=== PATIENT | female | born 1990 | race Caucasian/White ===

== ENCOUNTER 2020-09-23 07:59 | Emergency (ER) | payer MEDICAID, OTHER ==
[~2020-09-23] VITALS: Ht 154.9 cm; Wt 69.7 kg
[~2020-09-23 07:59] MED LIST: CLEO300C2 PO; LEVO112T2 PO; PRED20TA PO
[2020-09-23] MEDS ORDERED: ISOVUE-370 76% 100ML VIAL As Ordered ONE (08:50)
--- NOTE | 2020-09-23 10:18 | REP ---
INDICATION: tonsilitis, r/o [employer]. Patient gives a history of thyroid carcinoma treated with radioiodine. Post thyroidectomy. COMPARISON: Comparison CT study of the neck is from October 07, 2018.. TECHNIQUE: Helical scanning is acquired following the intravenous injection of 75 mL of Isovue 370. 3 mm axial images re-formatted. Coronal and sagittal MPR images are provided. FINDINGS: There is an air-fluid level in the right maxillary sinus with mucosal thickening in the right maxillary sinus. Patient is status post bilateral uncinectomy. Partial opacification is seen in the ethmoid air cells bilaterally. The left maxillary sinus is clear. No intraorbital abnormality is appreciated. The visualized intracranial structures are unremarkable. The tonsillar and peritonsillar soft tissues are unremarkable today. There is no evidence of tonsillar or peritonsillar abscess. Submandibular glands are normal and symmetric. Parotid glands are unremarkable. There are scattered normal sized cervical lymph nodes similar to the prior study from 2019. There is a focus of residual or aberrant thyroid tissue to the right of the trachea and posterior to the carotid artery on the right. This measures 1.5 x 1.5 by 2.7 cm. There are hypodense areas within this thyroid tissue consistent with cysts or nodules. This is unchanged from the October 07, 2018 prior study. This is of uncertain significance in a patient who is status post both surgical and radio iodine ablation therapy. There is a nodular area of increased density at or adjacent to the anterior margin of the thyroid cartilage. This measures 10 x 13 x 25 mm. It is not clear whether this represents a localized cartilage lesion or a nother to positive ectopic thyroid tissue.. This also appears unchanged. No bony destructive lesion is seen. Lung apices are clear. IMPRESSION: 1. No evidence of tonsillar or peritonsillar abscess. 2. Status post thyroidectomy and by history, radio iodine ablation therapy for thyroid malignancy. There is residual and/or aberrant thyroid tissue in the right neck, as previously noted unchanged, 1.5 x 1.5 x 2.7 cm. There is another stable radiodense nodule in the anterior midline at the thyroid cartilage also unchanged. Both these foci could be ectopic thyroid tissue. If she has indeed had radio iodine ablation therapy, this tissue should not persist.. There are stable normal-sized lymph nodes bilaterally. Recommend correlation with patient's thyroid malignancy treatment history. 3. Status post bilateral uncinectomy with air and fluid in the right maxillary sinus consistent with right maxillary sinusitis. <Electronically signed by Jean Carlos Castrejon > 09/23/20 1011
[2020-09-23 11:13] VITALS: BP 120/82
--- NOTE | 2020-09-27 11:58 | ED PDOC ---
Post-Departure Follow-Up jenae tafoya and joy faxed formal report of ct neck for fu Jeri Steele MD September 27, 2020 11:58
== END 2020-09-23 11:14 | disposition home or self-care (01) ==
LOC: M ED 07:59
DX: E07.9 Disorder of thyroid, unspecified (principal); J03.90 Acute tonsillitis, unspecified; Z79.890 Hormone replacement therapy; Z88.0 Allergy status to penicillin; Z88.5 Allergy status to narcotic agent; Z91.040 Latex allergy status
CPT/HCPCS: 36415; 70491; 80047; 99284; Q9967

== ENCOUNTER → 2023-07-02 | Outpatient (CLI) | payer OTHER | LOC: M PLAIMG 11:20 | PROVIDERS: ATTEND Physician Assistant | DX: S70.02XA Contusion of left hip, initial encounter (principal); W18.30XA Fall on same level, unspecified, initial encounter; Y92.009 Unspecified place in unspecified non-institutional (private) residence as the place of occurrence of the external cause ==

== ENCOUNTER → 2023-07-02 | Outpatient (CLI) | payer OTHER | LOC: M PLAIMG 09:44 | PROVIDERS: ATTEND Physician Assistant | DX: S80.02XA Contusion of left knee, initial encounter (principal); S90.32XA Contusion of left foot, initial encounter; Y92.9 Unspecified place or not applicable; Y93.9 Activity, unspecified ==

== ENCOUNTER → 2023-09-28 | Outpatient (CLI) | payer OTHER | LOC: M RAD 12:14 | PROVIDERS: ATTEND Physician Assistant | DX: S80.12XD Contusion of left lower leg, subsequent encounter (principal) ==